=== PATIENT | male | born 1980 | race Caucasian/White ===

== ENCOUNTER 2023-10-10 01:16 | Emergency (ER) | payer BC, OTHER, SELFPAY ==
[2023-10-10 01:25] VITALS: PULSE 92
[2023-10-10 02:10] VITALS: BP 127/85
== END 2023-10-10 02:05 ==
LOC: JD.ED 01:16
DX: E11.65 Type 2 diabetes mellitus with hyperglycemia (principal); F10.120 Alcohol abuse with intoxication, uncomplicated
CPT/HCPCS: 82947; 99284